=== PATIENT | female | born 1980 | race Caucasian/White ===

== ENCOUNTER 2017-08-02 09:07 | Emergency (ER) | payer MEDICAID ==
[~2017-08-02] VITALS: Ht 160 cm; Wt 91.0 kg
[2017-08-02 09:09] VITALS: Ht 160 cm; Wt 91.0 kg
[2017-08-02] MEDS ORDERED: KETOROLAC 30 MG INJ IV STA (09:28)
[2017-08-02] MEDS ORDERED: SOD CHLORIDE 0.9% 1,000 ML IV STA (09:28)
[2017-08-02 10:06] LABS: BASOPHILS % 0.3 % (0.0-2.0); EOSINOPHILS # 0.1 10^3/ul (0.0-0.5); HEMATOCRIT 41.2 % (37.0-47.0); HEMOGLOBIN 13.8 g/dl (12.0-16.0); LYMPHOCYTES # 2.3 10^3/ul (0.8-2.9); LYMPHOCYTES % 25.8 % (15.0-51.0); MEAN CORPUSCULAR HEMOGLOBIN 29.5 pg (29.0-33.0); MEAN CORPUSCULAR HGB CONC 33.5 g/dl (32.0-37.0); MEAN PLATELET VOLUME 11.9 fl (7.4-10.4); MONOCYTE # 0.6 10^3/ul (0.3-0.9); MONOCYTES % 6.4 % (0.0-11.0); NEUTROPHIL # 5.9 10^3/ul (1.6-7.5); NEUTROPHILS % 66.1 % (39.0-77.0); PLATELET COUNT 270 10^3/UL (140-415); RED BLOOD COUNT 4.68 10^6/ul (4.20-5.40); RED CELL DISTRIBUTION WIDTH 12.8 % (11.5-14.5); WHITE BLOOD COUNT 8.9 10^3/ul (4.8-10.8)
[2017-08-02 10:10] LABS: ADD UMIC NO; UR ASCORBIC ACID NEGATIVE (NEGATIVE); UR BILIRUBIN (Dip) NEGATIVE (NEGATIVE); UR BLOOD (Dip) NEGATIVE (NEGATIVE); UR CLARITY CLEAR (CLEAR); UR COLOR STRAW (YELLOW); UR GLUCOSE (Dip) NEGATIVE (NEGATIVE); UR KETONES (Dip) NEGATIVE (NEGATIVE); UR LEUKOCYTE ESTERASE (Dip) NEGATIVE Leu/ul (NEGATIVE); UR NITRITE (Dip) NEGATIVE (NEGATIVE); UR SPECIFIC GRAVITY (Dip) 1.009 (1.003-1.030); UR TOTAL PROTEIN (Dip) NEGATIVE (NEGATIVE); UR UROBILINOGEN (Dip) NEGATIVE (NEGATIVE)
[2017-08-02 10:29] LABS: ALBUMIN 4.2 g/dl (3.3-4.9); ALBUMIN/GLOBULIN RATIO 1.1; BILIRUBIN,INDIRECT 0.2 mg/dl (0-1.1); BILIRUBIN,TOTAL 0.2 mg/dl (0.2-1.3); CALCIUM 9.3 mg/dl (8.4-10.2); CREATININE 0.63 mg/dl (0.44-1.00); POTASSIUM 4.1 mmol/L (3.5-5.1)
--- NOTE | 2017-08-02 10:32 | RADRPT ---
PROCEDURE: US Abdomen (right upper quadrant). CLINICAL INDICATION: Right upper quadrant abdomen pain. Vomiting. TECHNIQUE: Multiple real-time longitudinal and transverse images of the right upper quadrant of th e abdomen were acquired utilizing a curved array transducer. Images were reviewed on a high-resoluti on PACS workstation. COMPARISON: None FINDINGS: The liver is normal in size and normal in echogenicity. There is no focal hepatic lesion. Color Doppler and pulsed Doppler sonography demonstrate normal a ntegrade flow in the portal vein. Multiple gallstones are present in the gallbladder. There is no gallbladder wall thickening. There is no pericholecystic fluid collection. The bile ducts are normal with the common bile duct measuring 5.4 mm in diameter. The visualized portions of the pancreas are unremarkable with obscuration of the tail of the pancrea s. No free fluid is present. The right kidney measures 9.7 cm. There is normal echogenicity of the right kidney. There is no p erinephric fluid collection. No hydronephrosis, mass, or calculus is seen. IMPRESSION: 1. Gallstones in the gallbladder. No evidence of cholecystitis. 2. Otherwise unremarkable right upper quadrant abdomen ultrasound. RPTAT: QQ .Lorenzo Becerra MD, MD Date Time Electronically viewed and signed by .Lorenzo Becerra MD, MD on 08/02/2017 10:32 .R/
[2017-08-02] MEDS ORDERED: HYDR-906 PO (11:16)
[2017-08-02] MEDS ORDERED: FAMO-96 PO (11:16)
[2017-08-02 11:50] VITALS: BP 115/79; PULSE 82; RESP 18; TEMP 98.2
--- NOTE | 2017-08-02 15:11 | ERD ---
ER Documentation Chief Complaint Chief Complaint right upper abdominal pain x 2 weeks, vomit and diarrhea last night HPI 37-year-old female complaining of right upper abdominal pain 2 weeks. Patient has vomiting and diarrhea that started last night. No history of gallstones in the past. NKDA. Denies medical problems. Last, she was June 15. Has taken Pepto-Bismol for symptoms with no alleviation. ROS All systems reviewed and are negative except as per history of present illness. Medications Home Meds Active Scripts Famotidine* (Pepcid*) 20 Mg Tablet, 20 MG PO BID for 4 Days, #30 TAB Prov:MARY ANN CHASE PA-C 08/02/17 Hydrocodone/Acetaminophen ([place] 5-325 Tablet) 1 Each Tablet, 1 TAB PO Q6H Y for PAIN, #7 TAB Prov:MARY ANN CHASE PA-C 08/02/17 PMhx/Soc History of Surgery: Yes (C SECTION X2) Anesthesia Reaction: No Hx Neurological Disorder: No Hx Respiratory Disorders: No Hx Cardiac Disorders: No Hx Psychiatric Problems: No Hx Miscellaneous Medical Probl: No Hx Alcohol Use: No Hx Substance Use: No Hx Tobacco Use: No Smoking Status: Never smoker Physical Exam Vitals Vital Signs Date Time Temp Pulse Resp B/P Pulse Ox O2 Delivery O2 Flow Rate FiO2 08/02/17 11:50 98.2 82 18 115/79 08/02/17 09:09 98.5 80 18 132/62 100 Physical Exam GENERAL: The patient is well-appearing, well-nourished, in no acute distress HEENT: Atraumatic. Conjunctivae are pink. Pupils equal, round, and reactive to light. There is no scleral icterus. Tympanic membranes clear bilaterally. Oropharynx clear. No nystagmus or photophobia. NECK: C-spine is soft and supple. There is no meningismus. There is no cervical lymphadenopathy. No JVD. No bruits. No goiter. CHEST: Clear to auscultation bilaterally. There are no rales, wheezes or rhonchi. HEART: Regular rate and rhythm. No murmurs, clicks, rubs or gallops. No S3 or S4. ABDOMEN: RUQ tenderness with palpation. No rebound tenderness. Normal distention. BACK: No midline or flank tenderness. Result Diagram: 08/02/1745 08/02/17 0940 Results 24 hrs Laboratory Tests Test 08/02/17 09:40 08/02/17 09:45 Urine Color STRAW Urine Clarity CLEAR Urine pH 8.0 Urine Specific [place] 1.009 Urine Ketones NEGATIVEmg/dL Urine Nitrite NEGATIVEmg/dL Urine Bilirubin NEGATIVEmg/dL Urine Urobilinogen NEGATIVEmg/dL Urine Leukocyte Esterase NEGATIVELeu/ul Urine Hemoglobin NEGATIVEmg/dL Urine Glucose NEGATIVEmg/dL Urine Total Protein NEGATIVEmg/dl Sodium Level 142mmol/L Potassium Level 4.1mmol/L Chloride Level 108mmol/L Carbon Dioxide Level 26mmol/L Anion Gap 12 Blood Urea Nitrogen 9mg/dl Creatinine 0.63mg/dl Glucose Level 104mg/dl Calcium Level 9.3mg/dl Total Bilirubin 0.2mg/dl Direct Bilirubin 0.00mg/dl Indirect Bilirubin 0.2mg/dl Aspartate Amino Transf (AST/SGOT) 30IU/L Alanine Aminotransferase (ALT/SGPT) 36IU/L Alkaline Phosphatase 106IU/L Total Protein 8.0g/dl Albumin 4.2g/dl Globulin 3.80g/dl Albumin/Globulin Ratio 1.10 Lipase 59U/L Serum HCG, Qualitative NEGATIVE White Blood Count 8.910^3/ul Red Blood Count 4.6810^6/ul Hemoglobin 13.8g/dl Hematocrit 41.2% Mean Corpuscular Volume 88.0fl Mean Corpuscular Hemoglobin 29.5pg Mean Corpuscular Hemoglobin Concent 33.5g/dl Red Cell Distribution Width 12.8% Platelet Count 37114^3/UL Mean Platelet Volume 11.9fl Neutrophils % 66.1% Lymphocytes % 25.8% Monocytes % 6.4% Eosinophils % 1.0% Basophils % 0.3% Nucleated Red Blood Cells % 0.0/100WBC Neutrophils # 5.910^3/ul Lymphocytes # 2.310^3/ul Monocytes # 0.610^3/ul Eosinophils # 0.110^3/ul Basophils # 0.010^3/ul Nucleated Red Blood Cells # 0.010^3/ul Current Medications Medications (Trade) Dose Ordered Sig/Brendan Route PRN Reason Start Time Stop Time Status Last Admin Dose Admin Sodium Chloride (NS) 1,000 ml @ 1,000 mls/hr Q1H STAT IV 08/02/17 09:28 08/02/17 10:27 DC 08/02/17 09:55 Ketorolac Tromethamine (Toradol) 30 mg ONCE STAT IV 08/02/17 09:28 08/02/17 09:32 DC 08/02/17 09:55 Procedures/MDM DIAGNOSTIC IMAGING REPORT Patient: SCOTT FLORES : 1980 Age: 37 Sex: F MR #: [id number] DOS: 08/02/17927 Ordering MD: WM CHASE PA-C Location: E/R Room/Bed: PROCEDURE: US Abdomen (right upper quadrant). CLINICAL INDICATION: Right upper quadrant abdomen pain. Vomiting. TECHNIQUE: Multiple real-time longitudinal and transverse images of the right upper quadrant of the abdomen were acquired utilizing a curved array transducer. Images were reviewed on a high-resolution PACS workstation. COMPARISON: None FINDINGS: The liver is normal in size and normal in echogenicity. There is no focal hepatic lesion. Color Doppler and pulsed Doppler sonography demonstrate normal antegrade flow in the portal vein. Multiple gallstones are present in the gallbladder. There is no gallbladder wall thickening. There is no pericholecystic fluid collection. The bile ducts are normal with the common bile duct measuring 5.4 mm in diameter. The visualized portions of the pancreas are unremarkable with obscuration of the tail of the pancreas. No free fluid is present. The right kidney measures 9.7 cm. There is normal echogenicity of the right kidney. There is no perinephric fluid collection. No hydronephrosis, mass, or calculus is seen. IMPRESSION: 1. Gallstones in the gallbladder. No evidence of cholecystitis. 2. Otherwise unremarkable right upper quadrant abdomen ultrasound. ER course: 1 L normal saline given in ED. IV Toradol given in ED. MDM: 37-year-old female complaining of right upper quadrant pain. Patient does have gallstones appreciated on exam. Patient does not have gallbladder wall thickening and blood work is within normal limits. I have low suspicion for cholecystitis, cholangitis, pancreatitis or choledocholithiasis. A low suspicion for other acute abdominal etiologies as patient's pain is localized primarily to the right upper quadrant. Patient is having normal bowel movements and does not have tenderness palpation in the pelvic region or right lower quadrant. Patient is discharged with strict ER precautions and told to follow-up with primary care within 1-2 days for close evaluation. Patient is told symptoms change or worsen to return the ER. All questions answered discharge. Departure Diagnosis: Primary Impression: Gallstone Condition: Stable Patient Instructions: Gallstones Referrals: [facility] YOU HAVE RECEIVED A MEDICAL SCREENING EXAM AND THE RESULTS INDICATE THAT YOU DO NOT HAVE A CONDITION THAT REQUIRES URGENT TREATMENT IN THE EMERGENCY DEPARTMENT. FURTHER EVALUATION AND TREATMENT OF YOUR CONDITION CAN WAIT UNTIL YOU ARE SEEN IN YOUR DOCTORS OFFICE WITHIN THE NEXT 1-2 DAYS. IT IS YOUR RESPONSIBILITY TO MAKE AN APPOINTMENT FOR FOLOW-UP CARE. IF YOU HAVE A PRIMARY DOCTOR --you should call your primary doctor and schedule an appointment IF YOU DO NOT HAVE A PRIMARY DOCTOR YOU CAN CALL OUR PHYSICIAN REFERRAL HOTLINE AT IF YOU CAN NOT AFFORD TO SEE A PHYSICIAN YOU CAN CHOSE FROM THE FOLLOWING [facility] [address] [facility] [address] [facility] [facility] [facility] [address] [facility] [address] [facility] [address] [facility] [facility]. [address] Additional Instructions: FOLLOW UP WITH YOUR PRIMARY CARE PHYSICIAN TOMORROW.Return to this facility if you are not improving as expected. MARY ANN CHASE PA-C Aug 02, 2017 15:11
== END 2017-08-02 11:50 | disposition home or self-care (01) ==
LOC: FTE 09:07 → E/R 11:50
DX: K80.20 Calculus of gallbladder without cholecystitis without obstruction (principal)
CPT/HCPCS: 36415; 76705; 80053; 81003; 83690; 84703; 85025; 96361; 96374; J1885; J7030; Z7502